=== PATIENT | female | born 1950 | race Caucasian/White ===

== ENCOUNTER → 2020-08-02 | Day surgery (SDC) | payer MEDICARE, OTHER ==
[~2020-08-02] MED LIST: DIPRIVAN 200 MG/20 ML IV ONE; Decadron 4 MG INJ ONE; Lactated Ringers 1,000 ML IV SCH; SUBLIMAZE 100 MCG/2 ML ONE; Xylocaine-Mpf 2% 5 Ml Vial ONE; Zofran 4 MG/2 ML VIAL ONE
--- NOTE | 2020-08-02 15:24 | HP ---
Please also refer to the patient's written notes in her chart as well. 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 She recently started having postmenopausal vaginal bleeding. She was worked up by CT scan initially and then pelvic ultrasound. This imaging showed a possible mass in the uterus which needs further evaluation. D&C has been recommended to obtain sampling of the lesion and the patient presents for D&C today. H&P and consent all are reviewed with her today. PAST MEDICAL/SURGICAL HISTORY: Gastric lymphoma. Multiple scopes. Tonsillectomy. Bunionectomy. MEDICATIONS: Medications were reviewed and listed in the chart and are correct. ALLERGIES: GUAIFENESIN. DEXTROMETHORPHAN. PSEUDOEPHEDRINE. SOCIAL HISTORY: No tobacco or alcohol use. FAMILY HISTORY: Heart disease, colon cancer. PHYSICAL EXAMINATION: GENERAL: No acute distress. CVS: Regular rate and rhythm. PULMONARY: Nonlabored. ABDOMEN: Soft, nontender. EXTREMITIES: Normal. DIAGNOSIS: Endometrial thickening with irregularity and mass. PLAN: D&C.
[2020-08-02 17:04] VITALS: BP 146/74; PULSE 75; O2SAT 95
--- NOTE | 2020-08-03 09:21 | OP ---
PROCEDURE DATE/TIME: 08/02/2020 1449 PREOPERATIVE DIAGNOSIS: Endometrial thickening with mass and postmenopausal bleeding. POSTOPERATIVE DIAGNOSIS: Endometrial thickening with mass and postmenopausal bleeding. PROCEDURE: Fractionated dilatation and curettage. PROCEDURE PERFORMED BY: Mariely Joseph M.D. CAMPUS SAFETY OFFICER: Tavares Joseph M.D. ANESTHESIA: General. ESTIMATED BLOOD LOSS: Minimal less than 30 cc. COMPLICATIONS: None. SPECIMENS: 1) Endocervical tissue. 2) Endometrial tissue. HISTORY: This is a patient who had postmenopausal bleeding. She was worked up with a CT scan and ultrasound. We identified a thickened endometrium with a possible mass needing further biopsy. Risks, benefits, alternatives related to the procedure discussed with the patient preoperatively. Her H&P and consent were completely reviewed with her and confirmed. DESCRIPTION OF PROCEDURE: She was then brought back to the operative suite. Anesthesia induced. Prepped and draped in lithotomy position. Complete time out performed. First, a bimanual exam was done. The patient has an anteverted uterus. She has a mild rectocele, very minimal cystocele. No other abnormalities noted. Cervix on gross inspection looked normal. We then placed a single tooth tenaculum and grasped the anterior aspect of the cervix. The cervical os was then evaluated and tissue taken using the endocervical curette. This was sent as "Endocervical tissue". We then measured the uterus this was approximately 8.25 cm and then the cervix was dilated from about 3 to 8 mm. We then proceeded to curette the entire uterus to send this as "Endometrial tissue" to pathology. Most significant thickening of tissue was noted in the left anterior aspect of the uterus. All tissue was collected and sent off. At the end of the procedure everything looked hemostatic. The tenaculum was removed. This was hemostatic. The patient tolerated the procedure very well. There were no immediate complications. I will call her with her initial results and she will be seen as an outpatient in approximately a week and a half to go through her final pathology results and to make a plan for hysterectomy as well.
== END | disposition home or self-care (01) ==
LOC: SDC 12:00
PROVIDERS: ATTEND Surgery
DX: C54.1 Malignant neoplasm of endometrium (principal); R93.89 Abnormal findings on diagnostic imaging of other specified body structures; N95.0 Postmenopausal bleeding; Z79.899 Other long term (current) drug therapy
CPT/HCPCS: 99100; J1100; J2405; J2704; J3010

== ENCOUNTER 2020-08-30 06:40 | Inpatient (IN) | payer MEDICARE ==
[2020-08-30] MEDS ORDERED: MEFOXIN 2 GM PREMIX** 2 GM/50 ML ML IV ONE (07:29)
[2020-08-30] MEDS ORDERED: Lactated Ringers 1,000 ML IV ONE ×3 (07:29→16:10)
[2020-08-30] MEDS ORDERED: Lactated Ringers 1,000 ML IV SCH (07:30)
[2020-08-30] MEDS ORDERED: MEFOXIN 2 GM PREMIX** 2 GM/50 ML ML IV SCH (08:00)
[2020-08-30 08:03] LABS: Absolute Neutrophil Ct (ANC) 3.37 (1.4-6.9); BASOPHIL % 0.4 % (0.0-0.4); Basophil (Absolute #) 0.02 (0-0.4); Eosinophil % 7.7 % (0.00-5.0); Eosinophil (Absolute #) 0.44 (0-0.5); Hematocrit 38.2 % (35-47); Hemoglobin 12.1 gm/dl (12.0-16.0); Lymphocytes % 21.1 % (24.0-44.0); Mean Cell Volume 104.7 fl (78-100); Mean Corpuscular Hemoglobin 33.2 pg (26-32); Mean Corpuscular Hgb Concent. 31.7 g/dl (32-36); Mean Platelet Volume 10.7 fl (7.5-11.0); Monocyte (Absolute #) 0.66 (0.0-1.3); Monocytes % 11.6 % (0.0-12.0); Neutrophil % 59.2 % (36.0-66.0); Platelet Count 236 K/mm3 (150-450); Red Blood Count 3.65 M/mm3 (4.1-5.4); Red Cell Distribution Width 12.6 % (11.5-14.0); White Blood Count 5.7 K/mm3 (4.0-10.5)
[2020-08-30 08:35] LABS: ALBUMIN 3.9 g/dL (3.5-5.0); ALKALINE PHOSPHATASE 70 U/L (38-126); ANION GAP 8.9 MEQ/L (5-15); BLOOD UREA NITROGEN 16 mg/dL (7-17); CHLORIDE 108 mmol/L (98-107); Calcium 9.2 mg/dL (8.4-10.2); Carbon Dioxide 27 mmol/L (22-30); Creatinine 1 0.82 mg/dL (0.52-1.04); EST GLOMERULAR FILTRATION RATE > 60.0 ML/MIN; Glucose 107 mg/dL (74-106); Potassium 4.2 mmol/L (3.5-5.1); SGOT/AST 27 U/L (14-36); SGPT/ALT 15 U/L (0-35); SODIUM 140 mmol/L (137-145); Total Protein 6.5 g/dL (6.3-8.2)
[2020-08-30 08:37] LABS: ABO TYPING A; Antibody Screen NEGATIVE (NEGATIVE); RH TYPING POSITIVE
--- NOTE | 2020-08-30 09:33 | HP ---
DATE OF PROCEDURE: 08/30/2020 HISTORY OF PRESENT ILLNESS: This is a patient well known to me who has had a history of gastric lymphoma. She is status post radiation and no signs of recurrence. She noticed some unexpected vaginal bleeding and was worked up initially with Dr. Garsia. She had a CT scan showing irregularity of the uterus. The patient then had a pelvic ultrasound confirming a possible lesion in her uterus with irregular endometrial lining. I then performed a D&C and this was positive for endometrial cancer. The patient has been consented for a hysterectomy and bilateral salpingo-oophorectomy with possible lymph node biopsy. She understands all of the risks, benefits and alternatives. She is not having any other symptoms currently. No nausea. No vomiting. No significant abdominal pain. No shortness of breath. No cough. No fever. PAST MEDICAL/SURGICAL HISTORY: Includes gastric lymphoma, radiation, multiple scopes, tonsillectomy and foot surgery. MEDICATIONS: Aspirin which has been held. Carafate, Lisinopril, pantoprazole, paroxetine. ALLERGIES: GUAIFENESIN. DEXTROMETHORPHAN. PSEUDOEPHENDRINE. PHYSICAL EXAMINATION: GENERAL: No acute distress. CVS: Regular rate and rhythm. PULMONARY: Nonlabored respirations. ABDOMEN: Soft, nontender, nondistended. EXTREMITIES: Mild edema. Recent deep venous thrombosis study was negative. IMPRESSION: Endometrial cancer. PLAN: Total abdominal hysterectomy with bilateral salpingo-oophorectomy and possible lymph node biopsy.
[2020-08-30] MEDS ORDERED: Zofran 4 MG/2 ML VIAL IV PRN (12:15)
[2020-08-30] MEDS ORDERED: Morphine PCA 1 MG/ML 30 ML IV PRN (12:15)
[2020-08-30] MEDS ORDERED: LOPRESSOR 5 MG/5 ML INJECTION IV ONE (12:33)
[2020-08-30] MEDS ORDERED: Zofran 4 MG/2 ML VIAL ONE (12:59)
[2020-08-30 14:00] LABS: Appearance CLEAR (CLEAR); Bilirubin NEGATIVE (NEGATIVE); Blood NEGATIVE Ery/ul (0-5); Glucose NEGATIVE (NEGATIVE); Ketones NEGATIVE (NEGATIVE); Leukocyte Esterase NEGATIVE (NEGATIVE); Mucus SLIGHT /HPF (NEGATIVE); Nitrite NEGATIVE (NEGATIVE); Protein,Urine Dip NEGATIVE (Negative); Specific Gravity 1.012 (1.005-1.025); Urobilinogen NEGATIVE mg/dL (0-1)
[2020-08-30] MEDS ORDERED: MEDICATION INTERVENTION PO SCH (14:30)
[2020-08-30] MEDS: D5W/0.45NS W/ 20mEq KCl 1000 ML 1,000 ML IV SCH ×2 (14:55→23:44)
[2020-08-30] MEDS ORDERED: Vitamin C 500 MG PO SCH (15:00)
[2020-08-30] MEDS ORDERED: ZOCOR 20MG PO SCH (15:00)
[2020-08-30] MEDS ORDERED: BENADRYL 50 MG/ML IV ONE (15:03)
[2020-08-30] MEDS ORDERED: Naropin 0.5% 30 ML VIAL IJ ONE (16:10)
[2020-08-30] MEDS ORDERED: Astramorph-Pf 5 MG/10 ML IV ONE (16:10)
[2020-08-30] MEDS ORDERED: BRIDION 200MG/2ML IV ONE (16:10)
[2020-08-30] MEDS ORDERED: Decadron 4 MG INJ IV ONE (16:10)
[2020-08-30] MEDS ORDERED: DIPRIVAN 200 MG/20 ML IV ONE (16:10)
[2020-08-30] MEDS ORDERED: Versed 2 MG/2 ML Injection IV ONE (16:10)
[2020-08-30] MEDS ORDERED: Zofran 4 MG/2 ML VIAL IV ONE (16:10)
[2020-08-30] MEDS ORDERED: TORAdol 30 mg Injection IJ ONE (16:10)
[2020-08-30] MEDS ORDERED: Xylocaine-Mpf 2% 5 Ml Vial IJ ONE (16:10)
[2020-08-30] MEDS ORDERED: Zemuron 100 MG/10 ML IJ ONE ×2 (16:10)
[2020-08-30] MEDS ORDERED: SUBLIMAZE 100 MCG/2 ML IV ONE (16:10)
[2020-08-30] MEDS: Paxil 20 MG PO SCH (17:21)
[2020-08-30] MEDS: Carafate 1 GM PO SCH ×2 (17:22→21:22)
[2020-08-30] MEDS: Pepcid 20 MG PO SCH (17:22)
[2020-08-30] MEDS: Zestril 5 MG PO SCH (17:22)
[2020-08-30] MEDS: Vitamin C 500 MG PO SCH (17:22)
[2020-08-30] MEDS: Protonix 40MG Tablet PO SCH (17:22)
[2020-08-30] MEDS ORDERED: MEFOXIN 1 Gm/ D5W 50 Ml** 1 G/50 ML ML IV SCH (18:00)
[2020-08-30] MEDS: MEFOXIN 2 GM PREMIX** 2 GM/50 ML ML IV SCH ×2 (18:10→23:45)
[2020-08-30] MEDS: ZOCOR 20MG PO SCH (21:22)
[2020-08-30] MEDS ORDERED: NORCO 5/325 MG ONE (23:53)
[2020-08-30] MEDS: ULTRAM 50 MG PO PRN (23:59)
[2020-08-31] MEDS: TYLENOL 325 MG PO PRN ×3 (03:52→15:28)
[2020-08-31 05:37] LABS: Hematocrit 35.5 % (35-47); Mean Cell Volume 107.6 fl (78-100); Mean Corpuscular Hemoglobin 33.3 pg (26-32); Mean Platelet Volume 11.6 fl (7.5-11.0); Platelet Count 197 K/mm3 (150-450); Red Cell Distribution Width 12.6 % (11.5-14.0); White Blood Count 14.5 K/mm3 (4.0-10.5)
[2020-08-31] MEDS: ULTRAM 50 MG PO PRN ×2 (06:01→12:21)
[2020-08-31] MEDS: MEFOXIN 2 GM PREMIX** 2 GM/50 ML ML IV SCH ×2 (06:01→11:25)
[2020-08-31 06:19] LABS: ANION GAP 6.5 MEQ/L (5-15); BLOOD UREA NITROGEN 13 mg/dL (7-17); CHLORIDE 105 mmol/L (98-107); Calcium 8.3 mg/dL (8.4-10.2); Carbon Dioxide 28 mmol/L (22-30); Creatinine 1 0.85 mg/dL (0.52-1.04); EST GLOMERULAR FILTRATION RATE > 60.0 ML/MIN; Glucose 152 mg/dL (74-106); Potassium 4.5 mmol/L (3.5-5.1); SODIUM 135 mmol/L (137-145)
[2020-08-31] MEDS: Carafate 1 GM PO SCH ×4 (06:49→22:02)
[2020-08-31] MEDS: ENOXAPARIN SODIUM SQ SCH (09:32)
[2020-08-31] MEDS: Pepcid 20 MG PO SCH (09:33)
[2020-08-31] MEDS: Protonix 40MG Tablet PO SCH (09:33)
[2020-08-31] MEDS: Paxil 20 MG PO SCH (09:33)
[2020-08-31] MEDS: Zestril 5 MG PO SCH (09:33)
[2020-08-31] MEDS: Vitamin C 500 MG PO SCH (09:34)
[2020-08-31] MEDS ORDERED: RALOXIFENE HCL 60 MG PO SCH (10:00)
[2020-08-31] MEDS ORDERED: NON-FORMULARY ITEM (Paroxetine Hcl [Paroxetine Hcl] 40 MG) PO SCH (10:00)
[2020-08-31] MEDS ORDERED: ASCORBIC ACID PO SCH (10:00)
[2020-08-31] MEDS: D5W/0.45NS W/ 20mEq KCl 1000 ML 1,000 ML IV SCH (11:25)
[2020-08-31] MEDS: NORCO 5/325 MG PO PRN ×2 (15:41→20:08)
[2020-08-31] MEDS ORDERED: Sodium Chloride 0.9% 10 ML FLUSH Syringe IV PRN (18:15)
[2020-08-31] MEDS: ZOCOR 20MG PO SCH (22:02)
[2020-08-31] MEDS: Sodium Chloride 0.9% 10 ML FLUSH Syringe IV SCH (22:02)
[2020-09-01] MEDS: NORCO 5/325 MG PO PRN ×4 (00:18→15:57)
[2020-09-01] MEDS: Sodium Chloride 0.9% 10 ML FLUSH Syringe IV SCH ×2 (06:30→15:57)
[2020-09-01] MEDS: Carafate 1 GM PO SCH ×2 (06:34→11:20)
[2020-09-01] MEDS: ENOXAPARIN SODIUM SQ SCH (09:43)
[2020-09-01] MEDS: Pepcid 20 MG PO SCH (09:44)
[2020-09-01] MEDS: Protonix 40MG Tablet PO SCH ×2 (09:44→09:45)
[2020-09-01] MEDS: Paxil 20 MG PO SCH (09:44)
[2020-09-01] MEDS: Zestril 5 MG PO SCH (09:45)
[2020-09-01] MEDS: Vitamin C 500 MG PO SCH (09:45)
[2020-09-01 12:26] VITALS: BP 132/84; PULSE 78; O2SAT 97
--- NOTE | 2020-09-24 10:59 | OP ---
PROCEDURE DATE/TIME: 08/30/2020911 PREOPERATIVE DIAGNOSIS: Endometrial cancer. POSTOPERATIVE DIAGNOSIS: Endometrial cancer. PROCEDURE: Total abdominal hysterectomy with bilateral salpingo-oophorectomy and bilateral iliac lymph node biopsies. PROCEDURE PERFORMED BY: Mariely Joseph M.D. MANAGER COMMUNITY: Tavares Joseph M.D. COMPLICATIONS: None. ESTIMATED BLOOD LOSS: Minimal less than 50 cc. ANESTHESIA: General. SPECIMENS: 1) Total abdominal hysterectomy with bilateral salingo-oophorectomy. 2) Left iliac lymph node. 3) Right iliac lymph node. 4) Pelvic washings for cytology. HISTORY: This is a patient who had unexpected vaginal bleeding status post menopause who was worked up and found to have an abnormal pelvic ultrasound and abnormal uterus on CT scan. She had D&C positive for endometrial cancer. Risks, benefits and alternatives regarding hysterectomy, bilateral salpingo-oophorectomy and lymph node biopsies were all discussed with her in detail preoperatively. She was seen on the day of surgery. Her H&P and consent reviewed and confirmed. Any remaining questions were answered. DESCRIPTION OF PROCEDURE: She was then brought back to the operative suite. Anesthesia induced. She was prepped and draped in the usual sterile fashion. Complete time out performed. A lower midline laparotomy incision was made making the incision through skin, subcutaneous tissue. Fascia was opened. Peritoneum was opened. We then surveyed the abdomen. The patient did have some adhesions superiorly but from what we could feel and see all surfaces of the peritoneum and the surfaces of the bowel that were visible as well as the surface of the liver and stomach that were visible were all normal. No sign of any malignancy here. I did not get to feel the entire liver and stomach due to her prior radiation obstructing the view and retract laparotomy low. There was no peritoneal spreading either. The uterus did appear to be slightly enlarged for her age. We proceeded to do the hysterectomy without using any clamps so that there would be no puncture of the uterus with the known cancer in it. We took the ovarian vein and round ligament with white load stapler on both sides and then we coursed down the uterus following the plane of the uterus along the peritoneal fold with a Eva clamp and 0 PDS suture in the usual fashion down to the cervix. We then opened the vagina and removed the entire uterus and cervix with ovaries and then we sutured close the vagina by placing 0 PDS sutures. We laid all sutures in place and then tied these down sequentially after all sutures were placed. Everything looked hemostatic. We identified the course of the ureters early on in the case and avoided these the entire case. Our staple lines looked good. We then proceeded to perform our lymph node biopsy. We took pelvic washings at the beginning of the case and these were sent off for cytology. We then opened the plane of peritoneum to allow for iliac dissection. We took a small pad of tissue with lymph nodes in it on both the left and right side. We did this in the same manner. We avoided the left iliac vein and artery. On the left side on of the lymph nodes were slightly larger than the rest. It still did not look pathologic. We sent these lymph nodes and then we sent the right lymph nodes. Once this was complete we did another final inspection. Everything looked hemostatic. Staple line on the ovarian vein looked excellent. No issues. Vaginal cuff excellent. Uterosacral region fine. We then replaced the bowel in its normal anatomical location and then closed with running 0 loop PDS. Irrigated. Buried 3-0 Vicryl in subcu and then running 4-0 subcuticular monocryl in skin. Steri-Strips and sterile dressing. The patient tolerated the procedure very well. There were no immediate complications. She is going to be admitted for further follow up and then she will be also following up with me as an outpatient for her pathology report and to check her abdomen.
== END 2020-09-01 16:11 | disposition home or self-care (01) | DRG 741 ==
LOC: MED SURG 06:40 → EDSTATUS 09:34
PROVIDERS: ADMIT Surgery; ATTEND Surgery
PROC: 0UT90ZZ Resection of Uterus, Open Approach (ICD-10-PCS; principal; 2020-08-30)
PROC: 0UT70ZZ Resection of Bilateral Fallopian Tubes, Open Approach (ICD-10-PCS; 2020-08-30)
PROC: 0UT20ZZ Resection of Bilateral Ovaries, Open Approach (ICD-10-PCS; 2020-08-30)
PROC: 07BC0ZX Excision of Pelvis Lymphatic, Open Approach, Diagnostic (ICD-10-PCS; 2020-08-30)
DX: C54.1 Malignant neoplasm of endometrium (principal)
CPT/HCPCS: 36415; 62322; 64488; 76937; 76942; 80048; 80053; 81001; 85025; 85027; 86850; 86900; 86901; 87086; 88112; 88307; 88309; 99100; J0694; J1100; J1200; J1650; J1885; J2250; J2274; J2405; J2704; J2795; J3010; L0625; A9270-GY